=== PATIENT | female | born 1945 | race Caucasian/White ===

== ENCOUNTER 2020-08-07 09:49 | Inpatient (IN) ==
[2020-08-07 11:07] LABS: Basophils % 0.3 %; Eosinophils # 0.1 K/mcL (0.0-0.6); Eosinophils % 1.1 %; Hematocrit 35.1 % (35.3-44.9); Hemoglobin 11.2 g/dL (11.5-15.4); Immature Granulocytes % 1.1 % (0-4); Lymphocytes # 1.6 K/mcL (0.6-4.6); Lymphocytes % 17.2 %; Mean Corpuscular HGB Conc 31.9 g/dL (31.6-35.5); Mean Corpuscular Hemoglobin 29.5 pg (28.0-33.3); Mean Corpuscular Volume 92.4 fL (83.0-100.0); Monocytes # 0.7 K/mcL (0.0-1.3); Monocytes % 7.5 %; Neutrophils # 6.7 K/mcL (1.6-8.9); Platelet Count 290 K/mcL (140-400); Red Cell Distribution Width 13.9 % (11.5-14.5); Segmented Neutrophils % 72.8 %; White Blood Count 9.2 K/mcL (4.3-11.1)
[2020-08-07 11:20] LABS: BUN/Creatinine Ratio 31 (6-26); Blood Urea Nitrogen 27 mg/dL (8-23); Calcium 9.2 mg/dL (8.6-10.3); Carbon Dioxide 28 mEq/L (23-29); Chloride 103 mEq/L (98-107); Glucose 146 mg/dL (70-105); Osmolality,Calculated 294 (280-300); Potassium 4.1 mEq/L (3.5-5.1); Sodium 138 mEq/L (136-145); eGFR For African Americans > 60 (> 60); eGFR For Non-African Americans > 60 (> 60)
[2020-08-07] MEDS ORDERED: Isovue-370 500 ML BOTTLE IVP ONE (11:24)
[2020-08-07] MEDS ORDERED: *HR* HYDROcodone/Acet 5/325 mg TABLET PO PRN (15:17)
[2020-08-07] MEDS ORDERED: Acetaminophen 325 MG TABLET PO PRN (15:17)
[2020-08-07] MEDS ORDERED: Naloxone 0.4 MG/ML INJ IVP PRN (15:17)
[2020-08-07 15:38] LABS: Hematocrit 35.6 % (35.3-44.9); Hemoglobin 11.4 g/dL (11.5-15.4)
[2020-08-07 15:47] LABS: Prothrombin Time 11.7 Seconds (9.4-12.1)
[2020-08-07 15:54] LABS: Chol/HDL Ratio 5.1 (0-4.9); Cholesterol 189 mg/dL (< 200); HDL Cholesterol 37 mg/dL (40-59); LDL Cholesterol,Calculated 77 mg/dL (< 100); Triglycerides 374 mg/dL (< 150); Troponin I < 0.03 ng/mL (< 0.04)
[2020-08-07] MEDS ORDERED: Perflutren Lipid Microsphere 1.3 ML in 0.9 % Sodium Chloride 8.7 ML IVP PRN (16:04)
[2020-08-07 16:14] LABS: Thyroid Stimulating Hormone 2.878 mcIU/mL (0.340-5.600)
[2020-08-07] MEDS ORDERED: Ipratropium/Albuterol Neb 3 ML IH PRN (16:15)
[2020-08-07 16:35] LABS: Folate 9.1 ng/mL (3.0-16.0)
[2020-08-07 16:37] LABS: Acetaminophen < 10 mcg/mL (10-20); Creatine Kinase 174 Units/L (30-223); Ethanol < 10 mg/dL (Less than 10); Salicylate < 2.5 mg/dL (15.0-30.0)
[2020-08-07] MEDS: Melatonin 3 MG TABLET PO PRN (20:36)
[2020-08-07 20:43] LABS: Bilirubin,Urine Negative (Negative); Blood,Urine Negative (Negative); Clarity,Urine Clear (Clear); Color,Urine Light-Yellow (Yellow); Glucose,Urine (UA) Normal (Normal); Ketones,Urine Negative (Negative); Leukocyte Esterase,Urine Negative (Negative); Nitrite,Urine Negative (Negative); Protein,Urine Negative (Neg-Trace); Specific Gravity,Urine > 1.030 (1.010-1.025); Urobilinogen,Urine Normal (Normal)
[2020-08-07] MEDS ORDERED: NON-FORMULARY MEDICATION 1 EACH EACH (Ezetimibe 10 MG Tablet) PO SCH (21:15)
[2020-08-07] MEDS: Gabapentin 300 MG CAPSULE PO PRN (22:56)
[2020-08-08 05:05] LABS: Basophils % 0.4 %; Eosinophils # 0.1 K/mcL (0.0-0.6); Eosinophils % 1.3 %; Hematocrit 32.7 % (35.3-44.9); Hemoglobin 10.4 g/dL (11.5-15.4); Immature Granulocytes % 0.8 % (0-4); Lymphocytes # 2.2 K/mcL (0.6-4.6); Lymphocytes % 26.3 %; Mean Corpuscular HGB Conc 31.8 g/dL (31.6-35.5); Mean Corpuscular Hemoglobin 29.3 pg (28.0-33.3); Mean Corpuscular Volume 92.1 fL (83.0-100.0); Mean Platelet Volume 10.1 fL (9.4-12.4); Monocytes # 1.3 K/mcL (0.0-1.3); Monocytes % 15.4 %; Neutrophils # 4.6 K/mcL (1.6-8.9); Platelet Count 275 K/mcL (140-400); Red Blood Count 3.55 M/mcL (3.82-4.97); Red Cell Distribution Width 13.9 % (11.5-14.5); Segmented Neutrophils % 55.8 %; White Blood Count 8.3 K/mcL (4.3-11.1)
[2020-08-08 05:24] LABS: % Iron Saturation 11 % (15-50); Alanine Aminotransferase 16 Units/L (7-52); Albumin 3.8 g/dL (3.5-5.7); Albumin/Globulin Ratio 1.4 (1.1-2.2); Alkaline Phosphatase 101 Units/L (34-104); Aspartate Amino Transferase 15 Units/L (13-39); BUN/Creatinine Ratio 36 (6-26); Bilirubin,Total 0.4 mg/dL (0.3-1.0); Blood Urea Nitrogen 28 mg/dL (8-23); Calcium 9.1 mg/dL (8.6-10.3); Carbon Dioxide 27 mEq/L (23-29); Chloride 103 mEq/L (98-107); Globulin 2.7 g/dL (2.4-3.5); Glucose 114 mg/dL (70-105); Iron 37 mcg/dL (50-170); Magnesium 1.8 mg/dL (1.6-2.6); Osmolality,Calculated 292 (280-300); Sodium 138 mEq/L (136-145); Total Protein 6.5 g/dL (6.4-8.9); Transferrin 235 mg/dL (203-362); Troponin I < 0.03 ng/mL (< 0.04); eGFR For African Americans > 60 (> 60); eGFR For Non-African Americans > 60 (> 60)
[2020-08-08 05:43] LABS: Ferritin 97 ng/mL (10-120)
[2020-08-08 05:58] LABS: Folate 8.3 ng/mL (3.0-16.0)
[2020-08-08] MEDS: Venlafaxine XR (24 HR) 150 MG CAP.ER.24H PO SCH (08:31)
[2020-08-08 08:34] LABS: Amphetamine Screen,Urine Negative ng/mL (Cutoff=1000); Barbiturate Screen,Urine Negative ng/mL (Cutoff=200); Benzodiazepines Screen,Urine Negative ng/mL (Cutoff=200); Cannabinoid Screen,Urine Negative ng/mL (Cutoff = 50); Cocaine Screen,Urine Negative ng/mL (Cutoff= 300); Opiate Screen,Urine Negative ng/mL (Cutoff=300); Phencyclidine Screen,Urine Negative ng/mL (Cutoff=25)
[2020-08-08] MEDS: Multivit/Ca/Min/Fe/FA 1 TAB TABLET PO SCH (10:07)
[2020-08-08] MEDS: Cyanocobalamin (B-12) 1,000 MCG TABLET PO SCH (10:07)
[2020-08-08] MEDS: Cholecalciferol (D-3) 1,000 UNIT (25MCG) TABLET PO SCH (10:07)
[2020-08-08] MEDS: Losartan/HCTZ 50-12.5 TABLET PO SCH (10:08)
[2020-08-08] MEDS: Gabapentin 300 MG CAPSULE PO PRN ×2 (10:10→20:48)
[2020-08-08 10:23] LABS: Estimated Average Glucose 128 mg/dl; Hemoglobin A1C 6.1 %
[2020-08-08] MEDS ORDERED: Isovue-370 500 ML BOTTLE IVP ONE (19:49)
[2020-08-08] MEDS: Melatonin 3 MG TABLET PO PRN (20:48)
[2020-08-09 07:22] LABS: Folate 8.3 ng/mL (3.0-16.0)
[2020-08-09] MEDS: Venlafaxine XR (24 HR) 150 MG CAP.ER.24H PO SCH (08:45)
[2020-08-09] MEDS: Multivit/Ca/Min/Fe/FA 1 TAB TABLET PO SCH (08:45)
[2020-08-09] MEDS: Gabapentin 300 MG CAPSULE PO PRN (08:45)
[2020-08-09] MEDS: Cyanocobalamin (B-12) 1,000 MCG TABLET PO SCH (08:46)
[2020-08-09] MEDS: Losartan/HCTZ 50-12.5 TABLET PO SCH (08:46)
[2020-08-09] MEDS: Cholecalciferol (D-3) 1,000 UNIT (25MCG) TABLET PO SCH (08:46)
[2020-08-09 15:08] LABS: Adenovirus Not Detected (Not Detect); Coronavirus 229E Not Detected (Not Detect); Coronavirus HKU1 Not Detected (Not Detect); Coronavirus NL63 Not Detected (Not Detect); Coronavirus OC43 Not Detected (Not Detect); Human Metapneumovirus Not Detected (Not Detect); Human Rhinovirus/Enterovirus Not Detected (Not Detect); Influenza A Subtype 2009 H1 Not Detected (Not Detect); Influenza B Not Detected (Not Detect); Parainfluenza Virus 1 Not Detected (Not Detect); Parainfluenza Virus 2 Not Detected (Not Detect); Parainfluenza Virus 3 Not Detected (Not Detect); Parainfluenza Virus 4 Not Detected (Not Detect); SARS-CoV-2 Not Detected (Not Detect)
[2020-08-09 15:09] LABS: Bordetella Pertussis Not Detected (Not Detect); Chlamydophila pneumoniae Not Detected (Not Detect); Mycoplasma pneumoniae Not Detected (Not Detect); Respiratory Syncytial Virus Not Detected (Not Detect)
[2020-08-09 15:30] VITALS: BP 154/50
[2020-08-09] MEDS ORDERED: Acyclovir 500 MG in D5% in Water 100 ML IVPB SCH (19:00)
== END 2020-08-09 19:10 | disposition short-term general hospital (02) | DRG 101 ==
LOC: 3BNU 09:49 → EMEROOARM 09:49 → SUATTDRO 16:01 → 3BNU 16:41
PROVIDERS: ADMIT Internal Medicine; ATTEND Registered Nurse